=== PATIENT | female | born 1955 | race Caucasian/White ===

== ENCOUNTER → 2017-05-12 | Outpatient (CLI) | payer BC ==
--- NOTE | 2017-05-15 13:17 | MM ---
Reason for exam: screening (asymptomatic). Last mammogram was performed 2 years and 2 months ago. History: Patient is postmenopausal. Family history of breast cancer in mother. Physical Findings: A clinical breast exam by your physician is recommended on an annual basis and results should be correlated with mammographic findings. MG 3D Screening Mammo W/Cad Bilateral CC and MLO view(s) were taken. XCCL view(s) were taken of the right breast. Prior study comparison: March 25, 2015, bilateral MG screening mammo w CAD. August 12, 2010, bilateral digital screening mammo w/CAD. The breast tissue is extremely dense which could obscure a lesion on mammography. Finding: There are stable typically benign dystrophic calcifications in the right breast. No suspicious abnormality. ASSESSMENT: Benign, BI-RAD 2 RECOMMENDATION: Routine screening mammogram of both breasts in 1 year.
== END | disposition home or self-care (01) ==
LOC: RADMAMWWP 09:04
PROVIDERS: ATTEND Family Medicine
DX: Z12.31 Encounter for screening mammogram for malignant neoplasm of breast (principal)
CPT/HCPCS: 77063; 77067

== ENCOUNTER → 2020-07-29 | Outpatient (CLI) | payer OTHER ==
--- NOTE | 2020-08-03 07:57 | MM ---
Reason for exam: screening (asymptomatic). Last mammogram was performed 3 years and 3 months ago. History: Patient is postmenopausal. Family history of breast cancer in mother. Physical Findings: A clinical breast exam by your physician is recommended on an annual basis and results should be correlated with mammographic findings. MG Screening Mammo w CAD Bilateral CC and MLO view(s) were taken. Prior study comparison: May 12, 2017, bilateral MG 3d screening mammo w/cad. March 25, 2015, bilateral MG screening mammo w CAD. The breast tissue is heterogeneously dense. This may lower the sensitivity of mammography. ASSESSMENT: Benign, BI-RAD 2 RECOMMENDATION: Routine screening mammogram of both breasts in 1 year.
== END | disposition home or self-care (01) ==
LOC: RADMAMWWP 16:15
PROVIDERS: ATTEND Family Medicine
DX: Z12.31 Encounter for screening mammogram for malignant neoplasm of breast (principal); Z78.0 Asymptomatic menopausal state; Z80.3 Family history of malignant neoplasm of breast
CPT/HCPCS: 77067

== ENCOUNTER → 2020-11-25 | Outpatient (CLI) | payer OTHER ==
--- NOTE | 2020-11-26 08:00 | ECHOF ---
Referral Reason:R94.331 abnormal EKG MEASUREMENTS -------- HEIGHT: 172.7 cm WEIGHT: 65.8 kg BP: RVIDd: 3.6 cm (< 3.3) IVSd: 1.2 cm (0.6 - 1.1) LVIDd: 4.6 cm (3.9 - 5.3) LVPWd: 1.1 cm (0.6 - 1.1) IVSs: 2.0 cm LVIDs: 3.0 cm LVPWs: 1.7 cm LAESV Index (A-L): 20.64 ml/m Ao Diam: 3.0 cm (2.0 - 3.7) AV Cusp: 2.0 cm (1.5 - 2.6) LA Diam: 2.2 cm (2.7 - 3.8) MV EXCURSION: 16.432 mm (> 18.000) MV EF SLOPE: 100 mm/s (70 - 150) EPSS: 0.6 cm MV E Rodolfo: 0.57 m/s MV DecT: 204 ms MV A Rodolfo: 0.79 m/s MV E/A Ratio: 0.72 RAP: 5.00 mmHg RVSP: 22.34 mmHg FINDINGS -------- Sinus rhythm. This was a technically adequate study. The left ventricular size is normal. There is mild concentric left ventricular hypertrophy. Overa ll left ventricular systolic function is normal with, an EF between 55 - 60 %. The diastolic fillin g pattern is normal for the age of the patient 8.82. The right ventricle is mildly enlarged. Normal LA size by volume 22+/-6 ml/m2. The right atrium is mildly enlarged. Interatrial and interventricular septum intact. There is no evidence of aortic regurgitation. There is no evidence of aortic stenosis. No mitral regurgitation. Mild tricuspid regurgitation present. There is no evidence of pulmonary hypertension. The right v entricular systolic pressure, as measured by Doppler, is 22.34mmHg. There is no pulmonic regurgitation present. The aortic root size is normal. Normal inferior vena cava with normal inspiratory collapse consistent with estimated right atrial pre ssure of 5 mmHg. There is no pericardial effusion. CONCLUSIONS -------- 1. The left ventricular size is normal. 2. There is mild concentric left ventricular hypertrophy. 3. Overall left ventricular systolic function is normal with, an EF between 55 - 60 %. 4. The diastolic filling pattern is normal for the age of the patient 8.82 5. The right ventricle is mildly enlarged. 6. The right atrium is mildly enlarged. 7. Mild tricuspid regurgitation present. [employer] AGENT TEAM MEMBER: Jelly Garcia RDCS
== END | disposition home or self-care (01) ==
LOC: RADECHMAIN 14:34
PROVIDERS: ATTEND Family Medicine
DX: I51.7 Cardiomegaly (principal); I36.1 Nonrheumatic tricuspid (valve) insufficiency
CPT/HCPCS: 93306

== ENCOUNTER 2021-02-14 10:50 | Inpatient (IN) | payer OTHER ==
[2021-02-14] MEDS ORDERED: DEXAMETHASONE SOD PHOSPHATE 10 MG/ML 1 ML VIAL IV STA (11:46)
[2021-02-14] MEDS ORDERED: IPRATROPIUM-ALBUTEROL 3 ML NEB INHALATION STA (11:46)
--- NOTE | 2021-02-14 11:49 | ED ---
General Adult HPI - General Chief complaint: Shortness of Breath Stated complaint: ALFREDO Time Seen by Provider: 02/14/21 10:52 Source: EMS Mode of arrival: EMS Limitations: no limitations - History of Present Illness Initial comments: Dictation was produced using [employer] dictation software. please excuse any grammatical, word or spelling errors. Chief Complaint: 64-year-old female presents with several days of shortness of breath History of Present Illness: She 64-year-old female she smokes one pack of cigarettes a day. Patient states she has not had a cigarette in 2-3 days. Patient referable last 2-3 days. Denies any fevers. No cough. No sore throat or runny nose. Denies any lower extremity swelling. No history of blood clots. No nasal congestion. Nontoxic splint and agree with covered her COVID-19 symptoms. He muscles call patient given breathing treatment with improvement of her symptoms. The ROS documented in this emergency department record has been reviewed and confirmed by me. Those systems with pertinent positive or negative responses have been documented in the HPI. All other systems are other negative and/or noncontributory. PHYSICAL EXAM: General Impression: Alert and oriented x3, not in acute distress HEENT: Normocephalic atraumatic, extra-ocular movements intact, pupils equal and reactive to light bilaterally, mucous membranes moist. Cardiovascular: Heart regular rate and rhythm Chest: Able to complete full sentences, no retractions, no tachypnea, mild end expiratory wheezing diffusely Abdomen: abdomen soft, non-tender, non-distended, no organomegaly Musculoskeletal: Pulses present and equal in all extremities, no peripheral edema Motor: no focal deficits noted Neurological: CN II-XII grossly intact, no focal motor or sensory deficits noted Skin: Intact with no visualized rashes Psych: Normal affect and mood ED course: 65-year-old male presents emergency department for suture complaint of shortness of breath. Vital signs upon arrival are within acceptable limits. Do not suspect pulmonary embolism. EKG shows diffuse T-wave inversions in lead 23 inferior and lateral precordial leads. Laboratory evaluation obtained. CBC unremarkable. Coag panel is negative. D-dimer 0.85. Metabolic panel is unremarkable. Patient's troponin 0.760. Brain natruretic peptide of 6680. Coronavirus test is negative. This is discussed with cardiology was aware patient. She does have some symptoms concerning for acute coronary syndrome given onset heart failure, e levated troponin and EKG changes. Patient started on heparin given aspirin. Patient reevaluated at 1521 at the bedside not having any active symptoms currently. She'll be admitted to [facility] hospitalist group. EKG interpretation: Ventricular rate 89, normal sinus rhythm,. Interval 150, QRS 74, QTC 501. No KS prolongation, no QTC prolongation. There are T-wave inversions in inferior leads and septal lateral precordial leads. EKG concerning for ischemic changes. - Related Data Home Medications Medication Instructions Recorded Confirmed Cholecalciferol [Vitamin D3 (25 50 mcg PO Q48H 02/14/21 02/14/21 Mcg = 1000 Iu)] Levothyroxine Sodium [Synthroid] 62.5 mcg PO CAPUTO 02/14/21 02/14/21 Levothyroxine Sodium [Synthroid] 125 mcg PO [id number] 02/14/21 02/14/21 Allergies Allergy/AdvReac Type Severity Reaction Status Date / Time No Known Allergies Allergy Verified 02/14/21 11:37 Review of Systems ROS Statement: Those systems with pertinent positive or pertinent negative responses have been documented in the HPI. ROS Other: All systems not noted in ROS Statement are negative. Past Medical History Additional Past Medical History / Comment(s): hypothyroid History of Any Multi-Drug Resistant Organisms: None Reported Past Surgical History: Hysterectomy Additional Past Surgical History / Comment(s): partial thyroidectomy Past Psychological History: No Psychological Hx Reported Smoking Status: Current every day smoker Past Alcohol Use History: None Reported Past Drug Use History: None Reported General Exam Limitations: no limitations Course Vital Signs 02/14/21 02/14/21 02/14/21 10:50 11:20 13:03 Temperature 98.5 F Pulse Rate 99 93 Respiratory 24 22 18 Rate Blood Pressure 118/90 109/74 O2 Sat by Pulse 99 97 Oximetry 02/14/21 02/14/21 02/14/21 13:15 13:22 14:02 Temperature Pulse Rate 88 88 92 Respiratory 18 18 20 Rate Blood Pressure 90/57 O2 Sat by Pulse 97 Oximetry Medical Decision Making - Lab Data Result diagrams: 02/14/21 11:50 02/14/21 11:50 Lab Results 02/14/21 02/14/21 02/14/21 Range/Units 11:50 11:50 11:50 WBC 8.4 (3.8-10.6) k/uL RBC 4.93 (3.80-5.40) m/uL Hgb 15.2 (11.4-16.0) gm/dL Hct 43.5 (34.0-46.0) % MCV 88.3 (80.0-100.0) fL MCH 30.8 (25.0-35.0) pg MCHC 34.9 (31.0-37.0) g/dL RDW 12.3 (11.5-15.5) % Plt Count 174 (150-450) k/uL MPV 10.5 Neutrophils % 68 % Lymphocytes % 22 % Monocytes % 7 % Eosinophils % 0 % Basophils % 0 % Neutrophils # 5.7 (1.3-7.7) k/uL Lymphocytes # 1.9 (1.0-4.8) k/uL Monocytes # 0.6 (0-1.0) k/uL Eosinophils # 0.0 (0-0.7) k/uL Basophils # 0.0 (0-0.2) k/uL PT 10.1 (9.0-12.0) sec INR 0.9 (<1.2) APTT 22.4 (22.0-30.0) sec D-Dimer (<0.60) mg/L FEU Sodium 136 L (137-145) mmol/L Potassium 4.1 (3.5-5.1) mmol/L Chloride 103 (98-107) mmol/L Carbon Dioxide 24 (22-30) mmol/L Anion Gap 9 mmol/L BUN 11 (7-17) mg/dL Creatinine 0.49 L (0.52-1.04) mg/dL Est GFR (CKD-EPI)AfAm >90 (>60 ml/min/1.73 sqM) Est GFR (CKD-EPI)NonAf >90 (>60 ml/min/1.73 sqM) Glucose 134 H (74-99) mg/dL Calcium 9.4 (8.4-10.2) mg/dL Troponin I (0.000-0.034) ng/mL NT-Pro-B Natriuret Pep pg/mL Coronavirus (PCR) (Not Detectd) 02/14/21 02/14/21 02/14/21 Range/Units 11:50 11:50 11:50 WBC (3.8-10.6) k/uL RBC (3.80-5.40) m/uL Hgb (11.4-16.0) gm/dL Hct (34.0-46.0) % MCV (80.0-100.0) fL MCH (25.0-35.0) pg MCHC (31.0-37.0) g/dL RDW (11.5-15.5) % Plt Count (150-450) k/uL MPV Neutrophils % % Lymphocytes % % Monocytes % % Eosinophils % % Basophils % % Neutrophils # (1.3-7.7) k/uL Lymphocytes # (1.0-4.8) k/uL Monocytes # (0-1.0) k/uL Eosinophils # (0-0.7) k/uL Basophils # (0-0.2) k/uL PT (9.0-12.0) sec INR (<1.2) APTT (22.0-30.0) sec D-Dimer (<0.60) mg/L FEU Sodium (137-145) mmol/L Potassium (3.5-5.1) mmol/L Chloride (98-107) mmol/L Carbon Dioxide (22-30) mmol/L Anion Gap mmol/L BUN (7-17) mg/dL Creatinine (0.52-1.04) mg/dL Est GFR (CKD-EPI)AfAm (>60 ml/min/1.73 sqM) Est GFR (CKD-EPI)NonAf (>60 ml/min/1.73 sqM) Glucose (74-99) mg/dL Calcium (8.4-10.2) mg/dL Troponin I 0.760 H* (0.000-0.034) ng/mL NT-Pro-B Natriuret Pep 6680 pg/mL Coronavirus (PCR) Not Detected (Not Detectd) 02/14/21 Range/Units 11:50 WBC (3.8-10.6) k/uL RBC (3.80-5.40) m/uL Hgb (11.4-16.0) gm/dL Hct (34.0-46.0) % MCV (80.0-100.0) fL MCH (25.0-35.0) pg MCHC (31.0-37.0) g/dL RDW (11.5-15.5) % Plt Count (150-450) k/uL MPV Neutrophils % % Lymphocytes % % Monocytes % % Eosinophils % % Basophils % % Neutrophils # (1.3-7.7) k/uL Lymphocytes # (1.0-4.8) k/uL Monocytes # (0-1.0) k/uL Eosinophils # (0-0.7) k/uL Basophils # (0-0.2) k/uL PT (9.0-12.0) sec INR (<1.2) APTT (22.0-30.0) sec D-Dimer 0.85 H (<0.60) mg/L FEU Sodium (137-145) mmol/L Potassium (3.5-5.1) mmol/L Chloride (98-107) mmol/L Carbon Dioxide (22-30) mmol/L Anion Gap mmol/L BUN (7-17) mg/dL Creatinine (0.52-1.04) mg/dL Est GFR (CKD-EPI)AfAm (>60 ml/min/1.73 sqM) Est GFR (CKD-EPI)NonAf (>60 ml/min/1.73 sqM) Glucose (74-99) mg/dL Calcium (8.4-10.2) mg/dL Troponin I (0.000-0.034) ng/mL NT-Pro-B Natriuret Pep pg/mL Coronavirus (PCR) (Not Detectd) Critical Care Time Critical Care Time: Yes Total Critical Care Time: 33 Disposition Clinical Impression: New onset of congestive heart failure, Elevated troponin Disposition: ADMITTED IP TO THIS [facility] Condition: Critical Referrals: Ric Vears DO [Primary Care Provider] - 1-2 days
[2021-02-14 12:12] LABS: Basophils % (A) 0 %; Eosinophils % (A) 0 %; HCT 43.5 % (34.0-46.0); HGB 15.2 gm/dL (11.4-16.0); Lymphocytes # (A) 1.9 k/uL (1.0-4.8); Lymphocytes % (A) 22 %; MCH 30.8 pg (25.0-35.0); MCHC 34.9 g/dL (31.0-37.0); MCV 88.3 fL (80.0-100.0); Mean Platelet Volume 10.5; Monocytes # (A) 0.6 k/uL (0-1.0); Monocytes % (A) 7 %; Neutrophils # (A) 5.7 k/uL (1.3-7.7); Neutrophils % (A) 68 %; Platelet Count 174 k/uL (150-450); RBC 4.93 m/uL (3.80-5.40); RDW 12.3 % (11.5-15.5); WBC 8.4 k/uL (3.8-10.6)
[2021-02-14 12:20] LABS: INR 0.9 (<1.2); Partial Thromboplastin Time 22.4 sec (22.0-30.0); Prothrombin Time 10.1 sec (9.0-12.0)
[2021-02-14 12:22] LABS: African American GFR (CKD) >90 (>60 ml/min/1.73 sqM); Anion Gap 9 mmol/L; Blood Urea Nitrogen 11 mg/dL (7-17); Calcium 9.4 mg/dL (8.4-10.2); Carbon Dioxide 24 mmol/L (22-30); Chloride 103 mmol/L (98-107); Glucose 134 mg/dL (74-99); Non-African American GFR(CKD) >90 (>60 ml/min/1.73 sqM); Potassium 4.1 mmol/L (3.5-5.1); Sodium 136 mmol/L (137-145)
--- NOTE | 2021-02-14 13:03 | XR ---
EXAMINATION TYPE: XR chest 1V portable DATE OF EXAM: 02/14/2021 12:36 PM COMPARISON:Chest radiographs from 09/16/2012 CLINICAL INDICATION:Female, 65 years old with history of dyspnea; TECHNIQUE: Frontal view of the chest. FINDINGS: Lungs/Pleura: There is no evidence of pleural effusion, focal consolidation, or pneumothorax. Pulmonary vascularity: Unremarkable. Heart/mediastinum: Cardiomediastinal silhouette is unremarkable. Musculoskeletal: No acute osseous pathology. IMPRESSION: No acute cardiopulmonary disease/process.
[2021-02-14] MEDS ORDERED: HEPARIN SODIUM 1,000 UN/ML (10ML VL) IV ONE (14:08)
[2021-02-14] MEDS ORDERED: HEPARIN SODIUM 1,000 UN/ML (10ML VL) IV PRN (14:08)
[2021-02-14] MEDS ORDERED: ASPIRIN 81 MG PO STA (14:09)
[2021-02-14] MEDS ORDERED: HEPARIN SOD,PORK IN 0.45% NACL 25,000 UNIT in 0.45% NACL 1 250ML.BAG IV SCH (14:15)
--- NOTE | 2021-02-14 14:43 | CT ---
EXAMINATION TYPE: CT angio chest DATE OF EXAM: 02/14/2021 COMPARISON: None HISTORY: shortness of breath CT DLP: 213.5 mGycm Automated exposure control for dose reduction was used. CONTRAST: Performed with IV Contrast, patient injected with 100 mL of Isovue 370. The lungs are clear of consolidation. There is mild subsegmental atelectasis at the lung bases. There is no pleural effusion. Heart size is normal. There is no pericardial effusion. There is normal contrast opacification of the pulmonary arteries. There are no filling defects. There is no mediastinal adenopathy. There are no hilar masses. There is minimal atheromatous change i n the thoracic aorta. Ascending aorta measures 3.7 cm. There is no sign of dissection. The thoracic spine is intact. There is no compression fracture. Sternum is intact. IMPRESSION: Negative exam. No evidence of pulmonary embolism. Mild subsegmental atelectasis at the lung bases. Multiple Small hepatic cysts are noted.
[2021-02-14] MEDS: FUROSEMIDE 10 MG/ML 4 ML VIAL IV SCH (15:30)
[2021-02-14] MEDS ORDERED: ACETAMINOPHEN TAB 500 MG TAB PO PRN (19:07)
[2021-02-14] MEDS ORDERED: IPRATROPIUM-ALBUTEROL 3 ML NEB INHALATION PRN (19:07)
[2021-02-14] MEDS ORDERED: ALPRAZolam 0.25 MG TAB PO PRN (19:07)
--- NOTE | 2021-02-14 20:00 | HP ---
HISTORY AND PHYSICAL DATE OF SERVICE: 02/14/2021. CHIEF COMPLAINT: Shortness of breath. HISTORY OF PRESENT ILLNESS: This 65-year-old woman with a past medical history of multiple medical problems, including hypothyroidism, hysterectomy, partial thyroidectomy, history of nicotine dependence, being followed by Dr. Ric Veras in the outpatient setting, was not feeling well over the past several days. Patient had increased shortness of breath, cough and congestion. Patient [facility] and was admitted to the hospital for further evaluation and treatment. Evaluation showed combination of possible COPD acute exacerbation of congestive heart failure acute exacerbation. D- dimer was elevated. Covid [address] angio chest did not show any acute abnormality. CT angio chest did not show any typical infiltrates suggestive of Covid 19 pneumonia. Fluid overload was suggested and possible bronchiectasis also suspected from the CT angio. The patient being closely monitored at this time. There is no history of fever, rigors, chills at this time. The patient is extremely short of breath. The patient also had elevated D-dimer and as well as diffuse ST-T changes in the EKG. PAST MEDICAL HISTORY: History of hypothyroidism, history of hysterectomy. MEDICATIONS: The medications are: Synthroid and vitamin D3. Dose reviewed. ALLERGIES: None. FAMILY HISTORY: No history of heart disease or strokes in the family. SOCIAL HISTORY: Previous history of smoking. No history of alcohol. REVIEW OF SYSTEMS: ENT: No diminished vision. No diminished hearing. CARDIOVASCULAR as mentioned. RESPIRATORY. As mentioned earlier. GI: No nausea or vomiting. : No dysuria. NERVOUS SYSTEM: No numbness or weakness. ALLERGY/IMMUNOLOGY: No asthma or hayfever. MUSCULOSKELETAL as mentioned earlier. HEMATOLOGY/ONCOLOGY: No history of anemia. ENDOCRINE: No history of diabetes or hypothyroidism. CONSTITUTIONAL: As mentioned earlier. DERMATOLOGY: Negative. RHEUMATOLOGY: Negative. PSYCHIATRIC: As mentioned earlier. PHYSICAL EXAMINATION: Alert and oriented x3. Pulse is 86, blood pressure 90/67, respiration 18, temperature 97.8, pulse ox 97% on 2 L. HEENT: Conjunctivae normal. NECK: No JVD. CARDIOVASCULAR: S1, S2 muffled. RESPIRATORY: Breath sounds diminished in the bases. Breathing efforts are markedly increased. Accessory muscles respiration acting. Bilateral scattered expiratory rhonchi and crackles also present. ABDOMEN: Soft, nontender. No mass palpable. LEGS: No edema. No swelling. NERVOUS SYSTEM: Higher functions as mentioned earlier. Moves all 4 limbs. No focal motor or sensory deficits. LYMPHATICS: No lymph nodes palpable in the neck, axillae or groin. SKIN: No ulcer, no rash and no bleeding. JOINTS: No active deforming arthropathy. LABS: CBC within normal limits. D-dimer is 0.85. Sodium 130. Other labs noted. ASSESSMENT: 1. Shortness of breath for evaluation possible chronic obstructive pulmonary disease acute exacerbation with acute purulent tracheobronchitis or with a combination of congestive heart failure acute exacerbation with acute on chronic diastolic dysfunction. 2. Troponin elevated up to 0.0760. Rule out possible acute ibt-VE-itsumrg myocardial infarction. 3. Diffuse ST-T changes in the EKG. 4. Elevated D-dimer without any evidence of pulmonary embolism. 5. Hyponatremia. 6. Elevated random glucose. 7. Elevated D-dimer. RECOMMENDATION: This 65-year-old woman presented with shortness of breath. We will continue to monitor. I would recommend intravenous Lasix and bronchodilators empirically and I would also recommend cardiology consultation. Two-D echo may be repeated. The patient might require further evaluation including cardiac catheterization and 2D echo with Doppler. Otherwise, we will closely follow with Pulmonary and as well as Cardiology. Overall prognosis guarded because of multiple complex medical issues. Further recommendations to follow. I would repeat Covid test also may be worthwhile by employing PCR. Otherwise, prognosis guarded because of multiple complex medical issues and further recommendations to follow. A copy of dictation forwarded to Dr. Veras who is the primary physician. MMODL / IJN: [id number] /
[2021-02-14 20:42] LABS: Glucose,Whole Blood 175 mg/dL (75-99)
[2021-02-14] MEDS: PANTOPRAZOLE 40 MG/10 ML VIAL IVP SCH (20:46)
[2021-02-14] MEDS: INSULIN ASPART (NovoLOG) 100 UNIT/ML VIAL SQ SCH (20:46)
[2021-02-14] MEDS: methylPREDNISolone SOD SUCCI 125 MG/2 ML VIAL IV SCH (20:46)
[2021-02-14] MEDS: IPRATROPIUM-ALBUTEROL 3 ML NEB INHALATION SCH (22:17)
[2021-02-14] MEDS: SYMBICORT 160-4.5 MCG INHALER INHALATION SCH (22:17)
[2021-02-14 22:50] LABS: Appearance,Urine Clear (Clear); Bilirubin,Urine Negative (Negative); Blood,Urine Trace (Negative); Color,Urine Yellow; Glucose,Urine (UA) Negative (Negative); Ketones,Urine Negative (Negative); Leukocyte Esterase,Urine Moderate (Negative); Mucus,Urine Rare /hpf; Nitrite,Urine Negative (Negative); Protein,Urine Negative (Negative); RBC,Urine 2 /hpf (0-5); Specific Gravity,Urine 1.036 (1.001-1.035); Squamous Epithelial Cell,Urine 1 /hpf (0-4); Urobilinogen,Urine <2.0 mg/dL (<2.0); WBC,Urine 3 /hpf (0-5)
[2021-02-15] MEDS: methylPREDNISolone SOD SUCCI 125 MG/2 ML VIAL IV SCH ×3 (00:26→12:32)
[2021-02-15 04:01] LABS: Basophils % (A) 0 %; Eosinophils % (A) 0 %; HCT 44.7 % (34.0-46.0); HGB 15.3 gm/dL (11.4-16.0); Lymphocytes # (A) 1.6 k/uL (1.0-4.8); Lymphocytes % (A) 19 %; MCH 30.7 pg (25.0-35.0); MCHC 34.2 g/dL (31.0-37.0); MCV 89.8 fL (80.0-100.0); Mean Platelet Volume 10.4; Monocytes # (A) 0.1 k/uL (0-1.0); Monocytes % (A) 2 %; Neutrophils # (A) 6.4 k/uL (1.3-7.7); Neutrophils % (A) 78 %; Platelet Count 191 k/uL (150-450); RBC 4.98 m/uL (3.80-5.40); RDW 12.2 % (11.5-15.5); WBC 8.3 k/uL (3.8-10.6)
[2021-02-15] MEDS: FUROSEMIDE 10 MG/ML 4 ML VIAL IV SCH ×2 (04:24→17:38)
[2021-02-15 04:36] LABS: African American GFR (CKD) >90 (>60 ml/min/1.73 sqM); Anion Gap 8 mmol/L; Blood Urea Nitrogen 17 mg/dL (7-17); Calcium 9.3 mg/dL (8.4-10.2); Carbon Dioxide 28 mmol/L (22-30); Chloride 100 mmol/L (98-107); Glucose 153 mg/dL (74-99); Non-African American GFR(CKD) >90 (>60 ml/min/1.73 sqM); Potassium 4.2 mmol/L (3.5-5.1); Sodium 136 mmol/L (137-145)
[2021-02-15 05:53] LABS: Glucose,Whole Blood 171 mg/dL (75-99)
[2021-02-15] MEDS: LEVOTHYROXINE 125 MCG TAB PO SCH (06:45)
[2021-02-15] MEDS: INSULIN ASPART (NovoLOG) 100 UNIT/ML VIAL SQ SCH ×4 (06:45→20:13)
[2021-02-15] MEDS: IPRATROPIUM-ALBUTEROL 3 ML NEB INHALATION SCH ×3 (07:20→19:56)
[2021-02-15] MEDS: SYMBICORT 160-4.5 MCG INHALER INHALATION SCH ×2 (07:30→19:56)
[2021-02-15] MEDS ORDERED: NITROGLYCERIN SL TABS 0.4 MG TAB SUBLINGUAL PRN (09:07)
[2021-02-15] MEDS ORDERED: ASPIRIN 325 MG TAB PO STA (09:07)
[2021-02-15] MEDS ORDERED: ATORVASTATIN 80 MG TAB PO STA (09:07)
[2021-02-15] MEDS: CHOLECALCIFEROL 25 MCG (1000 IU) TABLET PO SCH (09:28)
[2021-02-15] MEDS: PANTOPRAZOLE 40 MG/10 ML VIAL IVP SCH (09:30)
[2021-02-15] MEDS: SODIUM CHLORIDE 0.9% 1,000 ML in EMPTY BAG 1 BAG IV SCH (09:31)
--- NOTE | 2021-02-15 09:31 | CONS ---
CONSULTATION CHIEF COMPLAINT: Shortness of breath HISTORY OF PRESENT ILLNESS: Anastasia is a 65-year-old lady with no significant past medical history who presented to the hospital with shortness of breath. She states that initially her symptoms have started with cough, congestion. She did not receive any Covid vaccine but was Covid negative on this admission. Her EKG showed severe inferolateral T-wave inversions. One set of troponin was slightly elevated as was the BNP. She was treated with intravenous heparin and at the time of my evaluation, remains comfortable at rest, but she is short of breath with very minimal activity and she does not have any chest pain. She had a CT scan of the chest that was negative for pulmonary embolism and there was no evidence of Covid pneumonia. There was fluid overload. PAST MEDICAL HISTORY: Significant for hypothyroidism and history of hysterectomy. She is on Synthroid. ALLERGIES: No known drug allergies. FAMILY HISTORY: Negative for premature coronary artery disease. SOCIAL HISTORY: Negative for smoking, EtOH abuse or drug abuse. REVIEW OF SYSTEMS: HEENT is unremarkable. CARDIAC as described above. RESPIRATORY as described above. GI negative. GENITOURINARY negative. ALLERGY/IMMUNOLOGY negative. SKIN negative. MUSCULOSKELETAL significant for arthritis. PSYCHOSOCIAL negative. DERM negative. CONSTITUTIONAL negative. ONCOLOGICAL negative. ORDER PROCESSOR significant for feeling a little tremulous. EXAM: Comfortable at rest. Afebrile. Heart rate is 80 beats per minute. Blood pressure is 109/69, respiratory rate 18, O2 saturation is 95% on 2 L. NECK: There is no jugular venous distention. Carotid upstroke is diminished. There is no bruit. CHEST exam reveals good air entry bilaterally. HEART exam reveals first and second heart sounds. No gallop. No murmur. No rub. ABDOMEN is soft, nontender. Examination of EXTREMITIES did not reveal any edema. Peripheral pulses are felt. LABS: Labs show that the troponin is elevated. BNP is elevated. Potassium is 4.2 creatinine is 0.6. CBC shows a hemoglobin of 15.3 and platelet count is 191. ASSESSMENT: Shortness of breath with EKG changes suggestive of myocardial ischemia and elevated troponin. PLAN: I will obtain an echocardiogram on her. Repeat her troponin and I advised her to undergo cardiac catheterization to rule out coronary artery disease. MMODL / IJN: [id number] /
[2021-02-15] MEDS ORDERED: IV FLUID CONTINUATION 950 ML IV ONE (10:05)
[2021-02-15] MEDS ORDERED: MIDAZOLAM 2 MG/2 ML VIAL IVP ONE (10:15)
[2021-02-15] MEDS ORDERED: fentaNYL (PF) 50 MCG/ML 5 ML AMP IVP ONE (10:15)
[2021-02-15] MEDS ORDERED: LIDOCAINE 1% INJ 10MG/ML (20 ML MDV) SQ ONE (10:18)
[2021-02-15] MEDS ORDERED: VERAPAMIL SYRINGE (5 MG/10 ML) INTRAARTER ONE (10:20)
[2021-02-15] MEDS ORDERED: HEPARIN SODIUM 1,000 UN/ML (10ML VL) IVP ONE (10:22)
[2021-02-15] MEDS ORDERED: HEPARIN SODIUM 1,000 UN/ML (10ML VL) ONE (10:23)
[2021-02-15] MEDS ORDERED: IOPAMIDOL-370 125ML BTL INJ ONE (10:30)
--- NOTE | 2021-02-15 11:00 | ECHOF ---
Referral Reason:new chf- please repeat MEASUREMENTS -------- HEIGHT: 170.2 cm WEIGHT: 65.3 kg BP: 109/69 IVSd: 1.3 cm (0.6 - 1.1) LVIDd: 4.4 cm (3.9 - 5.3) LVPWd: 1.3 cm (0.6 - 1.1) IVSs: 1.6 cm LVIDs: 2.7 cm LVPWs: 2.2 cm FINDINGS -------- Sinus rhythm. This was a technically adequate study. Limited Study The left ventricular size is normal. There is mild concentric left ventricular hypertrophy. Overa ll left ventricular systolic function is moderately impaired with, an EF between 35 - 40 %. Mid ant erior LV wall motion is hypokinetic. Mid inferior LV wall motion is hypokinetic. Apical anterio r LV wall motion is hypokinetic. Apical lateral LV wall motion is hypokinetic. Apical inferior LV wall motion is hypokinetic. Apical septum LV wall motion is hypokinetic. There is no evidence of aortic regurgitation. Mild mitral regurgitation is present. There is no pericardial effusion. CONCLUSIONS -------- 1. The left ventricular size is normal. 2. There is mild concentric left ventricular hypertrophy. 3. Overall left ventricular systolic function is moderately impaired with, an EF between 35 - 40 %. 4. Mid anterior LV wall motion is hypokinetic. 5. Mid inferior LV wall motion is hypokinetic. 6. Apical anterior LV wall motion is hypokinetic. 7. Apical lateral LV wall motion is hypokinetic. 8. Apical inferior LV wall motion is hypokinetic. 9. Apical septum LV wall motion is hypokinetic. 10. Mild mitral regurgitation is present. TERRITORY ACCOUNT EXECUTIVE: Cammie Melendez [facility]
[2021-02-15 11:41] VITALS: BMI 22.6
--- NOTE | 2021-02-15 12:04 | CC ---
CARDIAC CATHETERIZATION REPORT INDICATION: Acute jaf-CP-cxuhwho-elevation [place] and ischemic cardiomyopathy. PROCEDURE NOTE: After obtaining informed consent, left heart catheterization and coronary angiogram were performed using standard Annie catheters via the right radial artery. Patient tolerated the procedure well without any obvious immediate complications. Total sedation time was 12 minutes. The right radial artery access was obtained using modified Seldinger technique and under fluoroscopic guidance wires and catheters were manipulated into the ascending aorta and catheters were exchanged there. A right Annie catheter was used to obtain left ventricular pressures. Patient received 5 mg of verapamil to prevent vasospasm and 1500 units of IV heparin. Patient was on heparin prior to the procedures. FINDINGS: HEMODYNAMICS: Left ventricular end-diastolic pressure is 15 mm. There is no significant gradient across the aortic valve. LEFT VENTRICULOGRAM: Left ventriculogram was not performed. ANGIOGRAPHIC DATA: Left main coronary artery. Left main coronary artery is a normal-sized vessel and is free of stenosis. It divides into left anterior descending coronary artery and circumflex coronary artery. LAD and its branches, circumflex coronary artery and its branches are free of significant stenosis. Right coronary artery is a large dominant vessel and is free of significant disease. CONCLUSIONS: 1. Mildly elevated left ventricular end-diastolic pressure. 2. Normal coronary arteries. PLAN: I reviewed angiographic data with the patient and told her that her LV systolic dysfunction and EKG changes and elevated troponin are probably related to takotsubo syndrome, and her management is going to be with aspirin, beta blockers, statins and KRISSY inhibitors, and we will repeat an echo on her down the road. MMODL / IJN: [id number] /
[2021-02-15 12:08] LABS: Glucose,Whole Blood 185 mg/dL (75-99)
[2021-02-15] MEDS ORDERED: RX INFO: IV CONTRAST WAS GIVEN 1 EACH MISC MISCELLANE PRN (12:42)
--- NOTE | 2021-02-15 12:52 | PCN ---
PROCEDURE NOTE CARDIOVERSION PROCEDURE NOTE: INDICATION: Atrial fibrillation. PROCEDURE DESCRIPTION: After explaining the procedure to the patient, its risks and complications, blood pressure, heart rate and O2 saturation were monitored. After performing transesophageal echocardiogram and obtaining sedated state per Anesthesia Department, a synchronized biphasic cardioversion using 200 joules was performed with jew of normal sinus rhythm. There was no immediate complication. TERE / CARYN: [id number] /
--- NOTE | 2021-02-15 13:35 | P.CNPUL ---
History of Present Illness Consult date: 02/15/21 Reason for consult: dyspnea History of present illness: This is a 65-year-old female patient was hospitalized because of increased shortness of breath, cough, chest congestion, wheezing and some chest pain. Note that her symptoms are more so related to respiratory. Note that the patient has not taken her COVID 19 vaccination. Her COVID 19 testing by PCR came back negative. EKG showed anterolateral T-wave inversions. Troponins were mildly elevated and the patient also had a elevated pro-BNP level. CT angiogram showed underlying COPD P no evidence of any pulmonary embolism. No evidence of any COVID 19 related pneumonia. No signs of any fluid overload. Based on all this, the patient was initially seen by cardiology. The cardiac catheterization was done and the patient was found to have normal coronaries. There was some mild elevation of left ventricle end-diastolic pressure. Following the cardiac catheterization, the patient was brought back to her room. I had opportunity to evaluate this patient. The patient the patient was free of any chest pain. She had a limited echocardiogram on 02/15/2021 9 AM and the patient had a left ventricle ejection fraction of 35-40%. The patient also had some mild segmental wall motion abnormalities. Nevertheless, the cardiac catheterization showed normal findings. In any rate, the patient is a chronic smoker. The patient smokes one pack of cigarettes a day. Her presentation is more typical of an underlying COPD exacerbation along with a mild component of CHF. Accordingly, the patient was started on DuoNeb nebulized treatment [id number], she is on Symbicort and she is also on IV Solu Medrol 60 mg every 6 hours. She is on Lasix 40 mg IV push every 12 hours. IV fluids TO KVO. SHE WAS STARTED ON ASPIRIN AND BETA BLOCKERS FOR NONCARDIAC IS ON THE CASE. Review of Systems Constitutional: Denies chills, Denies fever Eyes: denies as per HPI, denies blurred vision, denies bulging eye, denies decr eased vision, denies diplopia, denies discharge, denies dry eye, denies irritation, denies itching, denies pain, denies photophobia, denies loss of peripheral vision, denies loss of vision, denies tunnel vision/blind spots Ears: deny: decreased hearing, ear discharge, earache, tinnitus Ears, nose, mouth and throat: Reports as per HPI Breasts: absent: as per HPI, change in shape, gynecomastia, masses, nipple discharge, pain, skin changes, swelling Cardiovascular: Reports as per HPI, Reports decreased exercise tolerance, Reports dyspnea on exertion Respiratory: Reports cough, Reports cough with sputum, Reports dyspnea Gastrointestinal: Reports as per HPI Genitourinary: Reports as per HPI Menstruation: Reports as per HPI Musculoskeletal: Reports as per HPI Musculoskeletal: absent: ankle pain, ankle stiffness, ankle swelling, as per HPI, elbow pain, elbow stiffness, elbow swelling, foot pain, foot stiffness, foot swelling, hand pain, hand stiffness, hand swelling, hip pain, hip stiffness, hip swelling, knee pain, knee stiffness, knee swelling, shoulder pain, shoulder stiffness, shoulder swelling, wrist pain, wrist stiffness, wrist swelling Integumentary: Reports as per HPI Neurological: Reports as per HPI Psychiatric: Reports as per HPI Endocrine: Reports as per HPI Hematologic/Lymphatic: Reports as per HPI Allergic/Immunologic: Reports as per HPI Past Medical History Past Medical History: Thyroid Disorder Additional Past Medical History / Comment(s): hypothyroid History of Any Multi-Drug Resistant Organisms: None Reported Past Surgical History: Hysterectomy Additional Past Surgical History / Comment(s): partial thyroidectomy Past Psychological History: No Psychological Hx Reported Smoking Status: Former smoker Past Alcohol Use History: None Reported Past Drug Use History: None Reported Medications and Allergies Home Medications Medication Instructions Recorded Confirmed Type Cholecalciferol [Vitamin D3 (25 50 mcg PO Q48H 02/14/21 02/14/21 History Mcg = 1000 Iu)] Levothyroxine Sodium [Synthroid] 62.5 mcg PO CAPUTO 02/14/21 02/14/21 History Levothyroxine Sodium [Synthroid] 125 mcg PO [id number] 02/14/21 02/14/21 History Allergies Allergy/AdvReac Type Severity Reaction Status Date / Time No Known Allergies Allergy Verified 02/14/21 11:37 Physical Exam Vitals: Vital Signs Temp Pulse Pulse Resp BP BP Pulse Ox 02/15/21 12:15 97 02/15/21 12:08 95 02/15/21 11:25 74 18 105/71 94 L 02/15/21 11:10 74 18 99/57 02/15/21 10:55 81 16 90/52 91 L 02/15/21 10:40 71 16 89/56 91 L 02/15/21 09:37 18 02/15/21 09:36 97.4 F L 72 18 99/61 91 L 02/15/21 07:30 85 02/15/21 07:24 83 02/15/21 04:17 97.3 F L 80 20 109/69 95 02/15/21 00:07 78 22 99/66 94 L 02/14/21 20:17 97.4 F L 89 20 102/69 95 02/14/21 17:53 97.8 F 86 18 99/67 97 02/14/21 15:40 97 20 103/72 97 02/14/21 14:02 92 20 90/57 97 Intake and Output 02/14/21 02/15/21 02/15/21 22:59 06:59 14:59 Intake Total 170.225 207.539 Output Total 800 Balance 170.225 -800 207.539 Intake: IV 100 Intake, IV Titration 52.225 107.539 Amount Heparin Sod,Pork in 0.45% 52.225 107.539 NaCl 25,000 unit In 0.45 % NaCl 1 250ml.bag @ 12 UNITS/KG/HR 7.893 mls/hr IV .Q24H [facility] Rx#: [id number] Oral 118 0 Output: Urine 800 Other: Voiding Method Toilet Toilet Toilet # Voids 1 2 Weight 65.771 kg 65.5 kg 65.5 kg General Impression: Alert and oriented x3, not in acute distress, currently on 2 L about 2 by nasal cannula HEENT: Normocephalic atraumatic, extra-ocular movements intact, pupils equal and reactive to light bilaterally, mucous membranes moist. Cardiovascular: Heart regular rate and rhythm Chest: Able to complete full sentences, no retractions, no tachypnea, mild end expiratory wheezing diffusely Abdomen: abdomen soft, non-tender, non-distended, no organomegaly Musculoskeletal: Pulses present and equal in all extremities, no peripheral edema, the catheterization site in the right radial area is dry clean and intact and there is no evidence of any hematoma. The patient has an arterial stop In that location. Motor: no focal deficits noted Neurological: CN II-XII grossly intact, no focal motor or sensory deficits noted Skin: Intact with no visualized rashes Psych: Normal affect and moo Results - Laboratory Findings CBC and BMP: 02/15/21 03:48 02/15/21 03:48 PT/INR, D-dimer PT 10.1 sec (9.0-12.0) 02/14/21 11:50 INR 0.9 (<1.2) 02/14/21 11:50 D-Dimer 0.85 mg/L FEU (<0.60) H 02/14/21 11:50 Abnormal lab findings: Abnormal Labs 02/14/21 02/14/21 02/14/21 11:50 11:50 11:50 APTT D-Dimer 0.85 H Sodium 136 L Creatinine 0.49 L Glucose 134 H POC Glucose (mg/dL) Troponin I 0.760 H* Procalcitonin Ur Specific [place] Urine Blood Ur Leukocyte Esterase Urine Mucus 02/14/21 02/14/21 02/14/21 11:50 20:40 22:19 APTT D-Dimer Sodium Creatinine Glucose POC Glucose (mg/dL) 175 H Troponin I Procalcitonin 0.12 H Ur Specific [place] 1.036 H Urine Blood Trace H Ur Leukocyte Esterase Moderate H Urine Mucus Rare H 02/15/21 02/15/21 02/15/21 03:48 03:48 05:51 APTT 45.0 H D-Dimer Sodium 136 L Creatinine Glucose 153 H POC Glucose (mg/dL) 171 H Troponin I Procalcitonin Ur Specific [place] Urine Blood Ur Leukocyte Esterase Urine Mucus 02/15/21 02/15/21 09:13 11:58 APTT D-Dimer Sodium Creatinine Glucose POC Glucose (mg/dL) 185 H Troponin I 0.293 H* Procalcitonin Ur Specific [place] Urine Blood Ur Leukocyte Esterase Urine Mucus - Diagnostic Findings Chest x-ray: image reviewed CT scan - chest: image reviewed Assessment and Plan Plan: 1 acute COPD exacerbation with secondary shortness of breath, computed tomography scan of the chest shows no evidence of any pulmonary embolism or pneumonia. Patient is negative for COVID 19 infection by PCR 2 acute non-STEMI, coronaries are normal, consider underlying takasubo syndrome 3 cardiomyopathy with ejection fraction of 35-40% along with segmental wall motion abnormalities 4 acute hypoxic respiratory failure currently on 2 L about 2 by nasal cannula 5 history of smoking 6 history of smoking Plan IV fluids to KVO Continue Lasix 40 mg every 12 hours over the next 24 hours Continue Symbicort Continue IV Solu-Medrol Continue aspirin and beta blockers in the form of metoprolol 25 mg daily Smoking cessation counseling was done Outpatient PFT Wean FiO2 as tolerated to maintain saturation above 90% We'll continue to follow.
--- NOTE | 2021-02-15 15:28 | P.PN ---
Subjective 65-year-old pleasant female came in with compensative shortness of breath cough and congestion is an admission. Patient the results of found to have negative troponins patient had a cardiac catheterization which did not show any significant close cortical occlusive disease, patient probably has a Takatsubo cardiomyopathy is stress in his cardio myopathy with decreased EF of around 30- 35% patient's end-diastolic pressures were elevated because of which patient is on IV Lasix at this time patient is an not in COPD exacerbation I'm discontinuing IV steroids. Constitutional: Denied any fatigue denied any fever. Cardio vascular: denied any chest pain, palpitations Gastrointestinal denied any nausea vomiting Pulmonary: Denied any shortness of breath cough Neurologic denied any new focal deficits All inpatient medications were reviewed and appropriate changes in these medications as dictated in the interval history and assessment and plan. PHYSICAL EXAMINATION: GENERAL: The patient is alert and oriented x3, not in any acute distress. Well developed, well nourished. HEENT: Pupils are round and equally reacting to light. EOMI. No scleral icterus. No conjunctival pallor. Normocephalic, atraumatic. No pharyngeal erythema. No thyromegaly. CARDIOVASCULAR: S1 and S2 present. No murmurs, rubs, or gallops. PULMONARY: Chest is clear to auscultation, no wheezing or crackles. ABDOMEN: Soft, nontender, nondistended, normoactive bowel sounds. No palpable organomegaly. MUSCULOSKELETAL: No joint swelling or deformity. EXTREMITIES: No cyanosis, clubbing, or pedal edema. NEUROLOGICAL: Gross neurological examination did not reveal any focal deficits. SKIN: No rashes. Assessment and plan -Shortness of breath: Secondary to acute systolic dysfunction from Takatsubo myopathy with decreased EF of around 30-35%. Patient has acute exacerbation. Continue with IV Lasix. --Elevated troponins: Secondary to stress-induced cardiomyopathy as mentioned above -COPD without any significant acute exacerbation systemic steroids will be di scontinued -Hyperthyroidism DVT prophylaxis: Lovenox Objective - Vital Signs Vital signs: Vital Signs Temp 97.4 F L 02/15/21 09:36 Pulse 76 02/15/21 14:27 Resp 18 02/15/21 15:02 BP 102/64 02/15/21 14:27 Pulse Ox 93 L 02/15/21 14:27 Intake & Output 02/14/21 02/15/21 02/15/21 18:59 06:59 18:59 Intake Total 118 52.225 421.539 Output Total 800 Balance 118 -747.775 421.539 Weight 65.771 kg 65.5 kg 65.5 kg Intake: IV 100 Intake, IV Titration 52.225 107.539 Amount Heparin Sod,Pork in 0.45% 52.225 107.539 NaCl 25,000 unit In 0.45 % NaCl 1 250ml.bag @ 12 UNITS/KG/HR 7.893 mls/hr IV .Q24H [facility] Rx#: [id number] Oral 118 214 Output: Urine 800 Other: Voiding Method Toilet Toilet # Voids 1 2 1 - Labs CBC & Chem 7: 02/15/21 03:48 02/15/21 03:48 Labs: Abnormal Lab Results - Last 24 Hours (Table) 02/14/21 02/14/21 02/14/21 Range/Units 11:50 20:40 22:19 APTT (22.0-30.0) sec Sodium (137-145) mmol/L Glucose (74-99) mg/dL POC Glucose (mg/dL) 175 H (75-99) mg/dL Troponin I (0.000-0.034) ng/mL Procalcitonin 0.12 H (0.02-0.09) ng/mL Ur Specific [place] 1.036 H (1.001-1.035) Urine Blood Trace H (Negative) Ur Leukocyte Esterase Moderate H (Negative) Urine Mucus Rare H (None) /hpf 02/15/21 02/15/21 02/15/21 Range/Units 03:48 03:48 05:51 APTT 45.0 H (22.0-30.0) sec Sodium 136 L (137-145) mmol/L Glucose 153 H (74-99) mg/dL POC Glucose (mg/dL) 171 H (75-99) mg/dL Troponin I (0.000-0.034) ng/mL Procalcitonin (0.02-0.09) ng/mL Ur Specific [place] (1.001-1.035) Urine Blood (Negative) Ur Leukocyte Esterase (Negative) Urine Mucus (None) /hpf 02/15/21 02/15/21 Range/Units 09:13 11:58 APTT (22.0-30.0) sec Sodium (137-145) mmol/L Glucose (74-99) mg/dL POC Glucose (mg/dL) 185 H (75-99) mg/dL Troponin I 0.293 H* (0.000-0.034) ng/mL Procalcitonin (0.02-0.09) ng/mL Ur Specific [place] (1.001-1.035) Urine Blood (Negative) Ur Leukocyte Esterase (Negative) Urine Mucus (None) /hpf
[2021-02-15 16:58] LABS: Glucose,Whole Blood 128 mg/dL (75-99)
[2021-02-15] MEDS: SODIUM CHLORIDE 0.9% 1,000 ML IV SCH (19:31)
[2021-02-15 20:12] LABS: Glucose,Whole Blood 143 mg/dL (75-99)
[2021-02-16] MEDS: SODIUM CHLORIDE 0.9% 1,000 ML IV SCH (02:04)
[2021-02-16] MEDS: SODIUM CHLORIDE 0.9% 1,000 ML in EMPTY BAG 1 BAG IV SCH ×2 (02:04→17:25)
[2021-02-16] MEDS: FUROSEMIDE 10 MG/ML 4 ML VIAL IV SCH (04:09)
[2021-02-16 05:56] LABS: Glucose,Whole Blood 107 mg/dL (75-99)
[2021-02-16] MEDS: INSULIN ASPART (NovoLOG) 100 UNIT/ML VIAL SQ SCH (06:05)
[2021-02-16] MEDS: LEVOTHYROXINE 125 MCG TAB PO SCH (06:06)
[2021-02-16] MEDS: PANTOPRAZOLE 40 MG TABLET PO SCH (06:06)
[2021-02-16] MEDS: METOPROLOL SUCCINATE (ER) 25 MG TAB.ER.24H PO SCH (08:01)
[2021-02-16] MEDS: ASPIRIN 81 MG PO SCH (08:02)
[2021-02-16] MEDS: IPRATROPIUM-ALBUTEROL 3 ML NEB INHALATION SCH ×3 (08:51→20:06)
[2021-02-16] MEDS: SYMBICORT 160-4.5 MCG INHALER INHALATION SCH ×2 (08:51→20:06)
--- NOTE | 2021-02-16 10:34 | P.PN ---
Subjective Progress Note Date: 02/16/21 This 65-year-old female with no significant past medical history admitted with new onset heart failure. Patient's EKG revealed severe inferior lateral T-wave inversions and positive troponins, underwent a left heart catheterization yesterday via right radial artery access to evaluate for myocardial ischemia. Patient was found to have mildly elevated left ventricular end diastolic pressure and normal coronary arteries negative for significant blockages. Patient will be medically managed. It is believed the patient's EKG changes and elevated troponins are probably related to Takotsubo syndrome. Patient's echocardiogram showed moderately impaired systolic function with an ejection fraction of 35-40% with wall motion abnormalities. Patient is assessed today sitting in bed wearing 2 L nasal cannula with no signs of acute distress. Right radial access site is soft, no hematoma drainage, or erythema. She denies chest pain, palpitations, dyspnea, dizziness, syncope, or edema. Blood pressure is 102/56, afebrile, heart rate 81, 91% on 2 L nasal cannula. Chest x-ray is negative for acute cardiopulmonary disease or process. Will discontinue IV Lasix and start patient on oral lasix. Will continue patient on aspirin, beta blockers, statin, KRISSY inhibitor. Decrease oxygen as tolerated. Objective - Vital Signs Vital signs: Vital Signs Temp 97.7 F 02/16/21 08:04 Pulse 90 02/16/21 09:01 Resp 18 02/16/21 08:04 BP 102/56 02/16/21 08:04 Pulse Ox 91 L 02/16/21 08:04 Intake & Output 02/15/21 02/16/21 02/16/21 18:59 06:59 18:59 Intake Total 971.539 240 Output Total 1025 1300 Balance -53.461 -1300 240 Weight 65.5 kg 65.7 kg Intake: IV 100 Intake, IV Titration 107.539 Amount Heparin Sod,Pork in 0.45% 107.539 NaCl 25,000 unit In 0.45 % NaCl 1 250ml.bag @ 12 UNITS/KG/HR 7.893 mls/hr IV .Q24H [facility] Rx#: [id number] Oral 214 240 Blood Product 550 Output: Urine 1025 1300 Other: Voiding Method Toilet Toilet # Voids 1 - Exam PHYSICAL EXAM: VITAL SIGNS: Reviewed. GENERAL: Well-developed in no acute distress. HEENT: Head is normocephalic. Pupils are equal, round. Sclerae anicteric. Mucous membranes of the mouth are moist. NECK: Supple. No JVD or thyromegaly RESPIRATORY: Respirations even and unlabored. Lungs diminished with faint expiratory wheezes to auscultation bilaterally. Patient on 2 L nasal cannula CARDIO: Regular rate and rhythm. S1 and S2 heard. No murmur or gallops. EXTREMITIES: Normal range of motion. No clubbing or cyanosis. Peripheral pulses intact. Negative for bilateral lower extremity edema NEURO: Orientated to person, time, mood is appropriate - Labs CBC & Chem 7: 02/15/21 03:48 02/15/21 03:48 Labs: Abnormal Lab Results - Last 24 Hours (Table) 02/14/21 02/15/21 02/15/21 Range/Units 11:50 11:58 16:55 APTT (22.0-30.0) sec POC Glucose (mg/dL) 185 H 128 H (75-99) mg/dL Procalcitonin 0.12 H (0.02-0.09) ng/mL 02/15/21 02/16/21 02/16/21 Range/Units 20:11 05:54 06:34 APTT 21.7 L (22.0-30.0) sec POC Glucose (mg/dL) 143 H 107 H (75-99) mg/dL Procalcitonin (0.02-0.09) ng/mL Assessment and Plan Assessment: New onset systolic congestive heart failure Takotsubo syndrome Elevated troponins Abnormal EKG Plan: Discontinue IV Lasix and start Lasix 40 mg by mouth twice a day Continue with all other current cardiac medications Titrate oxygen down as tolerated
--- NOTE | 2021-02-16 14:52 | P.PN ---
Subjective Progress Note Date: 02/16/21 65-year-old pleasant female came in with compensative shortness of breath cough and congestion is an admission. Patient the results of found to have negative troponins patient had a cardiac catheterization which did not show any significant close cortical occlusive disease, patient probably has a Takatsubo cardiomyopathy is stress in his cardio myopathy with decreased EF of around 30- 35% patient's end-diastolic pressures were elevated because of which patient is on IV Lasix at this time patient is an not in COPD exacerbation I'm discontinuing IV steroids. 02/16/2021 Patient evaluated today resting in bed. She denies any chest pain, cough or shortness of breath. Plan is to continue Lasix overnight due to mildly elevated left ventricular end-diastolic pressure and possible discharge tomorrow. Vital signs afebrile, heart rate 96, blood pressure 112/57, 95% on room air. No acute events overnight. 1.7 L negative fluid balance in the last 24 hours. ROS Constitutional: Denied any fatigue denied any fever. Cardio vascular: denied any chest pain, palpitations Gastrointestinal denied any nausea vomiting Pulmonary: Denied any shortness of breath cough Neurologic denied any new focal deficits All inpatient medications were reviewed and appropriate changes in these medications as dictated in the interval history and assessment and plan. PHYSICAL EXAMINATION: GENERAL: The patient is alert and oriented x3, not in any acute distress. Well developed, well nourished. HEENT: Pupils are round and equally reacting to light. EOMI. No scleral icterus. No conjunctival pallor. Normocephalic, atraumatic. No pharyngeal erythema. No thyromegaly. CARDIOVASCULAR: S1 and S2 present. No murmurs, rubs, or gallops. PULMONARY: Chest is clear to auscultation, no wheezing or crackles. ABDOMEN: Soft, nontender, nondistended, normoactive bowel sounds. No palpable organomegaly. MUSCULOSKELETAL: No joint swelling or deformity. EXTREMITIES: No cyanosis, clubbing, or pedal edema. NEUROLOGICAL: Gross neurological examination did not reveal any focal deficits. SKIN: No rashes. Assessment and plan Assessment -Shortness of breath: Secondary to acute systolic dysfunction from Takatsubo myopathy with decreased EF of around 30-35%. -Elevated troponins: Secondary to stress-induced cardiomyopathy as mentioned above -COPD without any significant acute exacerbation -Hyperthyroidism DVT prophylaxis: Lovenox Plan Transition to oral lasix Wean oxygen as tolerated Repeat BMP tomorrow Discharge tomorrow if cleared by cardiology Objective - Vital Signs Vital signs: Vital Signs Temp 97.7 F 02/16/21 08:04 Pulse 90 02/16/21 08:51 Resp 18 02/16/21 08:04 BP 102/56 02/16/21 08:04 Pulse Ox 91 L 02/16/21 08:04 Intake & Output 02/15/21 02/16/21 02/16/21 18:59 06:59 18:59 Intake Total 971.539 240 Output Total 1025 1300 Balance -53.461 -1300 240 Weight 65.5 kg 65.7 kg Intake: IV 100 Intake, IV Titration 107.539 Amount Heparin Sod,Pork in 0.45% 107.539 NaCl 25,000 unit In 0.45 % NaCl 1 250ml.bag @ 12 UNITS/KG/HR 7.893 mls/hr IV .Q24H [facility] Rx#: [id number] Oral 214 240 Blood Product 550 Output: Urine 1025 1300 Other: Voiding Method Toilet Toilet # Voids 1 - Labs CBC & Chem 7: 02/15/21 03:48 02/15/21 03:48 Labs: Abnormal Lab Results - Last 24 Hours (Table) 02/14/21 02/15/21 02/15/21 Range/Units 11:50 09:13 11:58 APTT (22.0-30.0) sec POC Glucose (mg/dL) 185 H (75-99) mg/dL Troponin I 0.293 H* (0.000-0.034) ng/mL Procalcitonin 0.12 H (0.02-0.09) ng/mL 02/15/21 02/15/21 02/16/21 Range/Units 16:55 20:11 05:54 APTT (22.0-30.0) sec POC Glucose (mg/dL) 128 H 143 H 107 H (75-99) mg/dL Troponin I (0.000-0.034) ng/mL Procalcitonin (0.02-0.09) ng/mL 02/16/21 Range/Units 06:34 APTT 21.7 L (22.0-30.0) sec POC Glucose (mg/dL) (75-99) mg/dL Troponin I (0.000-0.034) ng/mL Procalcitonin (0.02-0.09) ng/mL
--- NOTE | 2021-02-16 15:06 | P.PN ---
Subjective Progress Note Date: 02/16/21 65-year-old female patient was seen yesterday in consultation for an acute COPD exacerbation. Noted the patient also had some chest pain. The patient underwent cardiac catheterization and the cath came back negative and the patient had some cardiomyopathy with an ejection fraction of 35% along with some segmental wall motion abnormalities. Cardiology still on the case. The patient is currently off IV heparin. Meanwhile, in regards to COPD exacerbation, start the patient on examination bronchodilators and steroids and she's feeling much better and less short of breath and less bronchospastic and wheezy. She is still maintaining a saturation above 90% and I was able to wean her off to room air and her current pulse ox on 95%. She is free of any chest pain. No other new complaints otherwise for now. She remains on bronchodilators. She was also started on Symbicort as maintenance. Objective - Vital Signs Vital signs: Vital Signs Temp 97.7 F 02/16/21 08:04 Pulse 96 02/16/21 12:44 Resp 16 02/16/21 12:00 BP 112/57 02/16/21 12:00 Pulse Ox 95 02/16/21 12:00 Intake & Output 02/15/21 02/16/21 02/16/21 18:59 06:59 18:59 Intake Total 971.539 240 Output Total 1025 1300 Balance -53.461 -1300 240 Weight 65.5 kg 65.7 kg Intake: IV 100 Intake, IV Titration 107.539 Amount Heparin Sod,Pork in 0.45% 107.539 NaCl 25,000 unit In 0.45 % NaCl 1 250ml.bag @ 12 UNITS/KG/HR 7.893 mls/hr IV .Q24H [facility] Rx#: [id number] Oral 214 240 Blood Product 550 Output: Urine 1025 1300 Other: Voiding Method Toilet Toilet # Voids 1 - Exam General Impression: Alert and oriented x3, not in acute distress, currently on room air oxygen HEENT: Normocephalic atraumatic, extra-ocular movements intact, pupils equal and reactive to light bilaterally, mucous membranes moist. Cardiovascular: Heart regular rate and rhythm Chest: Able to complete full sentences, no retractions, no tachypnea, mild end expiratory wheezing diffusely Abdomen: abdomen soft, non-tender, non-distended, no organomegaly Musculoskeletal: Pulses present and equal in all extremities, no peripheral edema, the catheterization site in the right radial area is dry clean and intact and there is no evidence of any hematoma. Motor: no focal deficits noted Neurological: CN II-XII grossly intact, no focal motor or sensory deficits noted Skin: Intact with no visualized rashes Psych: Normal affect and moo - Labs CBC & Chem 7: 02/15/21 03:48 02/15/21 03:48 Labs: Abnormal Lab Results - Last 24 Hours (Table) 02/15/21 02/15/21 02/16/21 Range/Units 16:55 20:11 05:54 APTT (22.0-30.0) sec POC Glucose (mg/dL) 128 H 143 H 107 H (75-99) mg/dL 02/16/21 Range/Units 06:34 APTT 21.7 L (22.0-30.0) sec POC Glucose (mg/dL) (75-99) mg/dL Assessment and Plan Plan: 1 acute COPD exacerbation with secondary shortness of breath, computed tomography scan of the chest shows no evidence of any pulmonary embolism or pneumonia. Patient is negative for COVID 19 infection by PCR. The patient is clinically improving and the patient is less short of breath and bronchospastic and wheezy on today's evaluation. In addition, the acute hypoxic respiratory failure has recovered and the patient has been weaned down to room air oxygen. 2 acute non-STEMI, coronaries are normal, consider underlying takasubo syndrome 3 cardiomyopathy with ejection fraction of 35-40% along with segmental wall motion abnormalities 4 acute hypoxic respiratory failure currently on 2 L about 2 by nasal cannula, recovered and the patient is currently on room air oxygen 5 history of smoking Plan Discontinue nasal cannula and put the patient on room air oxygen Discontinue IV Lasix and put the patient oral Lasix IV fluids to KVO Continue Symbicort Discontinue the IV Solu Medrol and put the patient on oral prednisone as part of a burst taper Continue aspirin and beta blockers in the form of metoprolol 25 mg daily Smoking cessation counseling was done Outpatient PFT We'll continue to follow. Possible home either today or within next 24 hours.
[2021-02-16] MEDS: FUROSEMIDE 40 MG TAB PO SCH (17:25)
[2021-02-16] MEDS: predniSONE 20 MG TAB PO SCH (17:25)
[2021-02-17] MEDS: SODIUM CHLORIDE 0.9% 1,000 ML IV SCH (05:03)
[2021-02-17] MEDS: PANTOPRAZOLE 40 MG TABLET PO SCH (06:30)
[2021-02-17] MEDS: SODIUM CHLORIDE 0.9% 1,000 ML in EMPTY BAG 1 BAG IV SCH (06:30)
[2021-02-17] MEDS: LEVOTHYROXINE 125 MCG TAB PO SCH (06:31)
[2021-02-17] MEDS: predniSONE 20 MG TAB PO SCH (07:59)
[2021-02-17] MEDS: CHOLECALCIFEROL 25 MCG (1000 IU) TABLET PO SCH (07:59)
[2021-02-17] MEDS: ASPIRIN 81 MG PO SCH (07:59)
[2021-02-17] MEDS: METOPROLOL SUCCINATE (ER) 25 MG TAB.ER.24H PO SCH (08:06)
[2021-02-17] MEDS: FUROSEMIDE 40 MG TAB PO SCH (08:06)
[2021-02-17] MEDS: SYMBICORT 160-4.5 MCG INHALER INHALATION SCH (08:57)
[2021-02-17] MEDS: IPRATROPIUM-ALBUTEROL 3 ML NEB INHALATION SCH ×2 (08:57→12:25)
--- NOTE | 2021-02-17 11:14 | P.PN ---
Subjective Progress Note Date: 02/17/21 65-year-old female patient was seen yesterday in consultation for an acute COPD exacerbation. Noted the patient also had some chest pain. The patient underwent cardiac catheterization and the cath came back negative and the patient had some cardiomyopathy with an ejection fraction of 35% along with some segmental wall motion abnormalities. Cardiology still on the case. The patient is currently off IV heparin. Meanwhile, in regards to COPD exacerbation, start the patient on examination bronchodilators and steroids and she's feeling much better and less short of breath and less bronchospastic and wheezy. She is still maintaining a saturation above 90% and I was able to wean her off to room air and her current pulse ox on 95%. She is free of any chest pain. No other new complaints otherwise for now. She remains on bronchodilators. She was also started on Symbicort as maintenance. On 02/17/2021 patient is seen in follow-up on selective care unit, she is currently on room air, breathing comfortably, still has a mild congestive cough, she started to bring up some yellow colored phlegm. No complaints of chest pain, no hemoptysis, vital signs otherwise patient had slight hypotension, she is asymptomatic, her morning dose of Lasix has been held, cardiology is closely following, this morning his blood pressure is 83/59, however patient denies any lightheadedness no dizziness, she is ambulating about the room, she is breathing comfortably, she states she is feeling good, she would like to go home today. She has been transitioned to oral prednisone yesterday, she remains on nebulized bronchodilators and Symbicort. She has had no fever or chills. Objective - Vital Signs Vital signs: Vital Signs Temp 97.6 F 02/17/21 08:00 Pulse 88 02/17/21 09:12 Resp 16 02/17/21 08:00 BP 94/60 02/17/21 08:00 Pulse Ox 91 L 02/17/21 08:00 Intake & Output 02/16/21 02/17/21 02/17/21 18:59 06:59 18:59 Intake Total 240 Output Total 1850 Balance 240 -1850 Weight 65.6 kg Intake: Oral 240 Output: Urine 1850 Other: Voiding Method Toilet # Voids 2 - Exam GENERAL EXAM: Alert, very pleasant, 65-year-old white female, on room air, ambulating in the room, comfortable in no apparent distress. Patient has a mildly congestive cough HEAD: Normocephalic/atraumatic. EYES: Normal reaction of pupils, equal size. Conjunctiva pink, sclera white. NOSE: Clear with pink turbinates. THROAT: No erythema or exudates. NECK: No masses, no JVD, no thyroid enlargement, no adenopathy. CHEST: No chest wall deformity. Symmetrical expansion. LUNGS: Equal air entry with no crackles, wheeze, rhonchi or dullness. CVS: Regular rate and rhythm, normal S1 and S2, no gallops, no murmurs, no rubs ABDOMEN: Soft, nontender. No hepatosplenomegaly, normal bowel sounds, no guarding or rigidity. EXTREMITIES: No clubbing, no edema, no cyanosis, 2+ pulses and upper and lower extremities. MUSCULOSKELETAL: Muscle strength and tone normal. SPINE: No scoliosis or deformity SKIN: No rashes CENTRAL NERVOUS SYSTEM: Alert and oriented -3. No focal deficits, tone is normal in all 4 extremities. PSYCHIATRIC: Alert and oriented -3. Appropriate affect. Intact judgment and insight. - Labs CBC & Chem 7: 02/15/21 03:48 02/15/21 03:48 Assessment and Plan Plan: Assessment: #1. Acute exacerbation of COPD, with secondary shortness of breath, CT angiogram of the chest showed no evidence of pulmonary embolism or pneumonia, COVID-19 PCR was negative, patient was treated with IV steroids, and bronchodilators, she is clinically improving #2. Acute non-ST elevated myocardial infarction, patient had coronary angiography, and coronaries are normal, with the possibility of underlying topical solution syndrome #3. Cardiomyopathy, with ejection fraction of 35-40% along with segmental wall motion abnormalities #4. Acute hypoxic respiratory failure related to acute exacerbation of COPD, recovered and patient is currently on room air #5. Chronic and ongoing history of smoking Plan: Patient is improving from pulmonary perspective She has been transitioned to oral prednisone Vital signs are stable, she is on room air Tolerating ambulation, no complaint of chest pain She is having mild hypotension this morning, and her morning dose of Lasix has been held She is asymptomatic otherwise She is stable for discharge from pulmonary perspective if she has been cleared by cardiology Patient will need to complete prednisone taper starting at 40 mg, she'll be sent home on DuoNeb nebulized treatments 4 times daily, and Symbicort inhaler 2 puffs twice daily Outpatient follow-up with Dr. Delgado in the office in 2-3 weeks I performed a history & physical examination of the patient and discussed their management with my nurse practitioner, Destiney Roblero. I reviewed the nurse practitioner's note and agree with the documented findings and plan of care. Lung sounds are positive for dim breath sounds throughout the lung marcial. The findings and the impression was discussed with the patient. I attest to the documentation by the nurse practitioner. Time with Patient: Less than 30
[2021-02-17 11:35] VITALS: TEMP 97.8
--- NOTE | 2021-02-17 11:37 | P.PN ---
Subjective Progress Note Date: 02/17/21 This 65-year-old female with no significant past medical history admitted with new onset heart failure. Patient's EKG revealed severe inferior lateral T-wave inversions and positive troponins, underwent a left heart catheterization yesterday. She was found to have normal coronary arteries negative for significant blockages. She will continue to be medically managed. It is believed the patient's EKG changes and elevated troponins are probably related to Takotsubo syndrome. After talking to the patient she reports she has had significant stress recently. She denies chest pain, palpitations, dyspnea, dizziness, syncope, or edema. Patient is on room air today, according to her nurse with activity she remains at 90%. Patient was hypotensive this morning her lasix was held and she received her m etoprolol. Will decrease Lasix due to hypotension. Patient has a current smoker. Discussed smoking cessation and advised her to quit. Blood pressure is 94/60, afebrile, heart rate 88, 91% on room air. Will continue patient on aspirin, beta blockers, Lasix. Objective - Vital Signs Vital signs: Vital Signs Temp 97.6 F 02/17/21 08:00 Pulse 88 02/17/21 09:12 Resp 16 02/17/21 08:00 BP 94/60 02/17/21 08:00 Pulse Ox 91 L 02/17/21 08:00 Intake & Output 02/16/21 02/17/21 02/17/21 18:59 06:59 18:59 Intake Total 240 Output Total 1850 Balance 240 -1850 Weight 65.6 kg Intake: Oral 240 Output: Urine 1850 Other: Voiding Method Toilet # Voids 2 - Exam PHYSICAL EXAM: VITAL SIGNS: Reviewed. GENERAL: Well-developed in no acute distress. HEENT: Head is normocephalic. Pupils are equal, round. Sclerae anicteric. Mucous membranes of the mouth are moist. NECK: Supple. No JVD or thyromegaly RESPIRATORY: Respirations even and unlabored. Lungs diminished with faint expiratory wheezes to auscultation bilaterally. Patient on 2 L nasal cannula CARDIO: Regular rate and rhythm. S1 and S2 heard. No murmur or gallops. EXTREMITIES: Normal range of motion. No clubbing or cyanosis. Peripheral pulses intact. Negative for bilateral lower extremity edema NEURO: Orientated to person, time, mood is appropriate - Labs CBC & Chem 7: 02/15/21 03:48 02/15/21 03:48 Assessment and Plan Assessment: New onset systolic congestive heart failure Takotsubo syndrome Elevated troponins Abnormal EKG Plan: Decrease Lasix to 40 mg daily Continue beta lazarus Due to normal coronary artery findings, patient does not require statin Continue all other current cardiac medications Continue on room air Increase activity as tolerated possible discharge within 24 hours
[2021-02-17 15:05] VITALS: BP 97/65; PULSE 75; RESP 17
--- NOTE | 2021-02-17 15:12 | P.DS ---
Providers Date of admission: 02/14/21 15:11 Attending physician: Ramos Sarmiento Consults: 02/14/21 14:09 Consult Physician Routine Consulting Provider: Blanca Small Consult Reason/Comments: heart failure, elevated troponin Do you want consulting provider notified?: Already Contacted 02/14/21 19:06 Consult Physician Routine Consulting Provider: Hamlet Murphy Consult Reason/Comments: copd?? Do you want consulting provider notified?: Yes Primary care physician: Ric Veras Hospital Course: Final Diagnosis -Acute systolic dysfunction from Takatsubo myopathy with decreased EF of around 30-35%. -Elevated troponins: Secondary to stress-induced cardiomyopathy as mentioned above -COPD with acute exacerbation -Hyperthyroidism -Mildly elevated end diastolic pressure found on cardiac catheterization -Hypotension, asymptomatic Discharge Disposition Patient is discharged home to follow up with PCP, cardiology, and pulmonary. Repeat BMP outpatient. Hospital Course This is a 64-year-old female who presented to the hospital with shortness of breath over several days, she does admit to smoking one pack of cigarettes per day. She has not had a cigarette in the last 2-3 days prior to admission. Chest x-ray on admission showed no acute cardiopulmonary disease process. Chest CTA revealed no evidence of pulmonary embolism. Echocardiogram revealed an EF of 35-40% with moderately impaired systolic function with hypokinesis of the LV wall. Subsequently patient was taken for cardiac catheterization which revealed normal coronary arteries and mildly elevated end-diastolic pressure. Labs on admission showed a BNP of 6680, pro-calcitonin 0.12, although troponins 0.760 and 0.293. Sodium level 136, BUN 11, creatinine 0.49, sugars in the 140s. Urinalysis negative for infection, Covid PCR not detected. Hematology panel unremarkable. Patient has remained afebrile, blood pressure 90s over 60s, patient states that it is normal for her to have a lower blood pressure. Blood pressure dipped as low as 83/59 however she has remained asymptomatic and denies any lightheadedness or dizziness. She has been 91-93% on room air. Heart rate 80s sinus rhythm. She was followed by cardiology and pulmonary services this admission. Pulmonary treated patient for an acute COPD exacerbation with steroids as well as Symbicort and nebulized DuoNeb. She will continue a steroid taper on discharge and follow-up with Dr. Delgado in the office. 02/17/2021 Patient evaluated today sitting up in her room. She is on room air. She denies any chest pain, cough, shortness of breath. She denies any dizziness lightheadedness. She denies any nausea vomiting or diarrhea. Abdomen is soft nontender, lungs are clear to auscultation, S1-S2 auscultated. There is no peripheral edema. Focal neurological exam is negative. Blood pressure this morning with the lower side 83/59 however am dose of Lasix was hel, her blood pressure is now 96 over 60s. Patient is cleared for discharge by pulmonary and cardiology services. Recommendations from cardiology include discharge on lasix 40 mg po daily, toprol xl 25 mg po daily. Please see medication reconciliation for list of current medications. Thank you for allowing us to participate in the care of this patient. Patient Condition at Discharge: Stable Plan - Discharge Summary Discharge Rx Participant: No New Discharge Prescriptions: New Ipratropium-Albuterol Nebulize [Duoneb 0.5 mg-3 mg/3 ml Soln] 3 ml INHALATION QID 30 Days #6 pack Metoprolol Succinate (ER) [Toprol XL] 25 mg PO DAILY #30 tab Furosemide [Lasix] 40 mg PO DAILY 30 Days #30 tab predniSONE 0 mg PO DIRECTED 16 Days #40 tab Budesonide/Formoterol Fumarate [Symbicort 160-4.5 Mcg Inhaler] 1 puff INHALATION BID 30 Days #10.2 gm Aspirin 81 mg PO DAILY #30 tab Famotidine [Pepcid] 20 mg PO DAILY #30 tablet Continue Levothyroxine Sodium [Synthroid] 62.5 mcg PO CAPUTO Levothyroxine Sodium [Synthroid] 125 mcg PO MOTUWETHFRSA Cholecalciferol [Vitamin D3 (25 Mcg = 1000 Iu)] 50 mcg PO Q48H Discharge Medication List Cholecalciferol [Vitamin D3 (25 Mcg = 1000 Iu)] 50 mcg PO Q48H 02/14/21 [History] Levothyroxine Sodium [Synthroid] 62.5 mcg PO CAPUTO 02/14/21 [History] Levothyroxine Sodium [Synthroid] 125 mcg PO MOTUWETHFRSA 02/14/21 [History] Aspirin 81 mg PO DAILY #30 tab 02/17/21 [Rx] Budesonide/Formoterol Fumarate [Symbicort 160-4.5 Mcg Inhaler] 1 puff INHALATION BID 30 Days #10.2 gm 02/17/21 [Rx] Famotidine [Pepcid] 20 mg PO DAILY #30 tablet 02/17/21 [Rx] Furosemide [Lasix] 40 mg PO DAILY 30 Days #30 tab 02/17/21 [Rx] Ipratropium-Albuterol Nebulize [Duoneb 0.5 mg-3 mg/3 ml Soln] 3 ml INHALATION QID 30 Days #6 pack 02/17/21 [Rx] Metoprolol Succinate (ER) [Toprol XL] 25 mg PO DAILY #30 tab 02/17/21 [Rx] predniSONE 0 mg PO DIRECTED 16 Days #40 tab 02/17/21 [Rx] Follow up Appointment(s)/Referral(s): Ric Veras DO [Primary Care Provider] - 02/22/21 2:00 pm Jhonny Mendoza MD [STAFF PHYSICIAN] - 2 Weeks (office will call you to schedule. ) Edelmira Delgado MD [STAFF PHYSICIAN] - 03/10/21 2:30 pm (with Shannan Rodríguez NP) Ambulatory/Diagnostic Orders: Basic Metabolic Panel [LAB.AMB] Time Frame: 2 Days, Location: None Selected Patient Instructions/Handouts: Heart Failure (DC) Activity/Diet/Wound Care/Special Instructions: Patient needs nebulizer to manage COPD at discharge Discharge Disposition: HOME WITH HOME HEALTH SERVICES
[2021-02-18] MEDS ORDERED: FUROSEMIDE 40 MG TAB PO SCH (09:00)
[2021-02-21] MEDS ORDERED: LEVOTHYROXINE 125 MCG TAB PO SCH (06:30)
== END 2021-02-17 15:12 | disposition home health service (06) | DRG 189 ==
LOC: EC 10:50 → 3SCARD 15:11
PROVIDERS: ADMIT Hospitalist; ATTEND Hospitalist
PROC: B2111ZZ Fluoroscopy of Multiple Coronary Arteries using Low Osmolar Contrast (ICD-10-PCS; 2021-02-15)
PROC: 4A023N7 Measurement of Cardiac Sampling and Pressure, Left Heart, Percutaneous Approach (ICD-10-PCS; principal; 2021-02-15 14:30)
DX: J96.01 Acute respiratory failure with hypoxia (principal); I50.23 Acute on chronic systolic (congestive) heart failure; I51.81 Takotsubo syndrome; E87.1 Hypo-osmolality and hyponatremia; J44.1 Chronic obstructive pulmonary disease with (acute) exacerbation; J20.9 Acute bronchitis, unspecified; I34.0 Nonrheumatic mitral (valve) insufficiency; I25.5 Ischemic cardiomyopathy; Z20.822 Contact with and (suspected) exposure to COVID-19; E03.9 Hypothyroidism, unspecified; E05.90 Thyrotoxicosis, unspecified without thyrotoxic crisis or storm; F17.210 Nicotine dependence, cigarettes, uncomplicated; Z79.890 Hormone replacement therapy; Z79.899 Other long term (current) drug therapy; Z90.710 Acquired absence of both cervix and uterus; Z71.6 Tobacco abuse counseling
CPT/HCPCS: 36415; 71045; 71275; 80048; 81001; 82728; 83615; 83880; 84145; 84484; 85025; 85379; 85610; 85730; 87635; 93005; 93308; 93458; 94640; 96365; 96366; 96375; 99291

== ENCOUNTER → 2021-02-19 | Outpatient (CLI) | payer OTHER ==
[2021-02-19 14:56] LABS: African American GFR (CKD) 97.7 (60.0-200.0); Anion Gap 13.9 mmol/L (10.00-18.00); BUN/Creat Ratio 20.03 Ratio (12.00-20.00); Blood Urea Nitrogen 15.1 mg/dL (9.0-27.0); Calcium 9.6 mg/dL (8.7-10.3); Carbon Dioxide 24.6 mmol/L (20.0-27.5); Non-African American GFR(CKD) 84.3 (60.0-200.0)
== END | disposition home or self-care (01) ==
LOC: LABWHC1 09:05
PROVIDERS: ATTEND Nurse Practitioner Family
DX: E87.1 Hypo-osmolality and hyponatremia (principal)
CPT/HCPCS: 36415; 80048

== ENCOUNTER → 2022-03-08 | Outpatient (CLI) | payer OTHER ==
--- NOTE | 2022-03-08 19:08 | MM ---
Reason for Exam: Screening (asymptomatic). Last mammogram was performed 1 year(s) and 7 month(s) ago. Patient History: Menarche at age 13. First Full-Term at age 23. Left ovary removed at age 44. Right ovary removed at age 44. Hysterectomy at age 44. Postmenopausal. Mother had breast cancer. Risk Values: Claudia 5 year model risk: 3.4%. NCI Lifetime model risk: 13.2%. Prior Study Comparison: 03/25/2015 Bilateral Screening Mammogram, [facility]. 05/12/2017 Bilateral Screening Mammogram, [facility]. 07/29/2020 Bilateral Screening Mammogram, [facility]. Tissue Density: The breast tissue is heterogeneously dense. This may lower the sensitivity of mammography. Findings: Analyzed By CAD. Possible distortion versus superimposition shadow posterior central left cc view. No clear correlate on the MLO view. Further evaluation is recommended. Chronic nodularity upper outer quadrant right breast and a couple foci of coarse or round calcification on the right. Overall Assessment: Incomplete: need additional imaging evaluation, BI-RAD 0 Management: Special View Mammogram of the left breast. Including spot 3-D CC, 3-D CC rolled medial, spot 3-D MLO, and 3-D lateral views. Targeted left breast ultrasound if any persisting abnormality. [facility] will attempt to contact patient to return for supplemental views and ultrasound if indicated. Electronically signed and approved by: Luisa Saleh M.D. Radiologist
== END | disposition home or self-care (01) ==
LOC: RADMAMWWP 06:49
PROVIDERS: ATTEND Family Medicine
DX: Z12.31 Encounter for screening mammogram for malignant neoplasm of breast (principal); Z78.0 Asymptomatic menopausal state; Z80.3 Family history of malignant neoplasm of breast
CPT/HCPCS: 77067

== ENCOUNTER → 2022-03-10 | Outpatient (CLI) | payer OTHER ==
--- NOTE | 2022-03-10 09:06 | MM ---
Reason for Exam: Additional evaluation requested from abnormal screening. Last screening mammogram was performed less than 1 month ago. Patient History: Menarche at age 13. First Full-Term at age 23. Left ovary removed at age 44. Right ovary removed at age 44. Hysterectomy at age 44. Postmenopausal. Mother had breast cancer. Risk Values: Claudia 5 year model risk: 3.4%. NCI Lifetime model risk: 13.2%. Prior Study Comparison: 03/25/2015 Bilateral Screening Mammogram, [facility]. 05/12/2017 Bilateral Screening Mammogram, [facility]. 07/29/2020 Bilateral Screening Mammogram, [facility]. 03/08/2022 Bilateral MG screening mammo w CAD, [facility]. Tissue Density: Left: The breast tissue is heterogeneously dense. This may lower the sensitivity of mammography. Findings: Analyzed By CAD. Area of possible architectural distortion becomes less apparent on the spot CC view. No clear persisting abnormality on the spot MLO are lateral view. As very dense tissue superiorly, further ultrasound evaluation is recommended. Overall Assessment: Incomplete: need additional imaging evaluation, BI-RAD 0 Management: Diagnostic Breast Ultrasound of the left breast. Electronically signed and approved by: Luisa Saleh M.D. Radiologist
--- NOTE | 2022-03-10 09:33 | USB ---
Reason for Exam: Additional evaluation requested from abnormal screening. Patient History: Menarche at age 13. First Full-Term at age 23. Left ovary removed at age 44. Right ovary removed at age 44. Hysterectomy at age 44. Postmenopausal. Mother had breast cancer. Risk Values: Claudia 5 year model risk: 3.4%. NCI Lifetime model risk: 13.2%. Technique: Method: Targeted. Prior Study Comparison: 05/12/2017 Bilateral Screening Mammogram, [facility]. 07/29/2020 Bilateral Screening Mammogram, [facility]. 03/08/2022 Bilateral MG screening mammo w CAD, [facility]. Findings: The upper section of the breast of the left breast, the axilla of the left breast and the retroareolar of the left breast were scanned. Targeted ultrasound left breast 10:00 to 2:00 position including the subareolar region and axilla. There is dense tissue present throughout. No solid or cystic lesion. Overall Assessment: Probably benign, BI-RAD 3 Management: Diagnostic Mammogram of the left breast. 1. Patient should continue monthly self breast exams. 2. A clinical breast exam by your physician is recommended on an annual basis. 3. This exam should not preclude additional follow-up of suspicious palpable abnormalities. Results were given to the patient verbally at the time of exam. Electronically signed and approved by: Luisa Saleh M.D. Radiologist
== END | disposition home or self-care (01) ==
LOC: RADMAMWWP 08:12
PROVIDERS: ATTEND Family Medicine
DX: R92.8 Other abnormal and inconclusive findings on diagnostic imaging of breast (principal); Z78.0 Asymptomatic menopausal state; Z80.3 Family history of malignant neoplasm of breast; Z90.721 Acquired absence of ovaries, unilateral
CPT/HCPCS: 77065

== ENCOUNTER → 2022-09-12 | Outpatient (CLI) | payer MEDICARE, OTHER ==
--- NOTE | 2022-09-12 08:12 | MM ---
Reason for Exam: Follow-up at short interval from prior study. Last screening mammogram was performed 6 month(s) ago. Patient History: Menarche at age 13. First Full-Term at age 23. Left ovary removed at age 44. Right ovary removed at age 44. Hysterectomy at age 44. Postmenopausal. Mother had breast cancer. Risk Values: Claudia 5 year model risk: 3.5%. NCI Lifetime model risk: 12.7%. Prior Study Comparison: 07/29/2020 Bilateral Screening Mammogram, [facility]. 03/08/2022 Bilateral MG screening mammo w CAD, [facility]. 03/10/2022 Left MG work up mamm w CAD LT, [facility]. Tissue Density: Left: The breast tissue is heterogeneously dense. This may lower the sensitivity of mammography. Findings: Analyzed By CAD. No new suspicious masses, calcifications or distortions. Overall Assessment: Benign, BI-RAD 2 Management: Screening Mammogram of both breasts in 6 months. Results were given to the patient verbally at the time of exam. Patient should continue monthly self-breast exams. A clinical breast exam by your physician is recommended on an annual basis. This exam should not preclude additional follow-up of suspicious palpable abnormalities. Note on Claudia scores and lifetime risk: 1. A Claudia score greater than 3% is considered moderate risk. If this is the case, consider specialist referral to assess eligibility for a risk reducing agent. 2. If overall lifetime risk for the development of breast cancer is 20% or higher, the patient may qualify for future screening with alternating mammogram and breast MRI. Electronically signed and approved by: Hamlet Pickard DO
== END | disposition home or self-care (01) ==
LOC: RADMAMWWP 06:50
PROVIDERS: ATTEND Family Medicine
DX: R92.2 Inconclusive mammogram (principal); Z78.0 Asymptomatic menopausal state; Z80.3 Family history of malignant neoplasm of breast
CPT/HCPCS: 77065; G0279; 77061

== ENCOUNTER → 2023-02-23 | Outpatient (CLI) | payer MEDICARE, OTHER ==
--- NOTE | 2023-02-23 11:02 | CTL ---
EXAMINATION TYPE: CT Low Dose Lung DATE OF EXAM: 02/23/2023 8:32 AM CLINICAL INDICATION:Female, 67 years old with history of Z12.2 Lung cancer screening; Personal hx tob acco use, still smoking, 1 pk per day x 40 years, noting no concerns , history of tobacco use. COMPARISON: 02/14/2021. TECHNIQUE: Multiple axial non-contrast scans were obtained from approximately the lung apices through the upper abdomen. Coronal and sagittal reformatted images were obtained. Low dose technique was uti lized. CT DLP: 85.90 mGycm, Automated exposure control for dose reduction was used. CT Contrast: Contrast used: None Oral contrast used: None FINDINGS: ======== Lack of intravenous contrast and low dose technique limits the evaluation of the vascular and soft ti ssue structures. LUNGS: No evidence of pulmonary fibrosis. No evidence of focal consolidation, pneumothorax or pleural effusion. Mild centrilobular and paraseptal emphysema changes. Nodules: RUL: Calcified granuloma series 3 image 50, Image 140 RML: None. RLL: Streaky atelectasis/scarring in the right lung base. Suspected granuloma series 3 image 224. [place]: Calcified granuloma series 3 image 104. Scarring in the left lung apex and lingula. LLL: None. AIRWAY: Patent and unremarkable. HEART: Size within normal limits. MEDIASTINUM: No gross evidence of adenopathy. VASCULATURE: No aortic aneurysm. MUSCULOSKELETAL: No acute osseous abnormalities SOFT TISSUES/LYMPH NODES: Unremarkable. LOWER NECK: No significant findings. UPPER ABDOMEN: Scattered hepatic probable cyst. IMPRESSION: 1. No clinically significant pulmonary nodules. 2. Mild emphysema. CT LUNG RAD AND CT CHEST RECOMMENDATION: Lung-Rad 2 Benign Appearance or Behavior: Continue annual sc reening with LDCT in 12 months. S Modifier (other clinically significant findings): None Recommend smoking cessation (if current smoker), or continuation of smoking cessation (if prior smoke r). Annual screening for lung cancer with low-dose computed tomography is recommended in adults ages 55 to 77 years who have a 30 pack-year smoking history and currently smoke or have quit within the pa st 15 years. Screening should be discontinued once a person has not smoked for 15 years or develops a health problem that substantially limits life expectancy or the ability or willingness to have curat regi lung surgery. Lung rads 2021 [email or web address]
== END | disposition home or self-care (01) ==
LOC: RADCTMAIN 08:12
PROVIDERS: ATTEND Internal Medicine
DX: Z12.2 Encounter for screening for malignant neoplasm of respiratory organs (principal); J43.2 Centrilobular emphysema; F17.210 Nicotine dependence, cigarettes, uncomplicated
CPT/HCPCS: 71271

== ENCOUNTER → 2023-05-10 | Outpatient (CLI) | payer MEDICARE, OTHER ==
--- NOTE | 2023-05-10 18:40 | MM ---
Reason for Exam: Screening (asymptomatic). Last mammogram was performed 1 year(s) and 2 month(s) ago. Patient History: Menarche at age 13. First Full-Term at age 23. Left ovary removed at age 44. Right ovary removed at age 44. Hysterectomy at age 44. Postmenopausal. Mother had breast cancer. Risk Values: Claudia 5 year model risk: 3.5%. NCI Lifetime model risk: 12.7%. Prior Study Comparison: 03/08/2022 Bilateral MG screening mammo w CAD, [facility]. 03/10/2022 Left MG work up mamm w CAD LT, [facility]. 09/12/2022 Left MG 3D diag mammo w/cad LT, [facility]. Tissue Density: The breasts are heterogeneously dense, which may obscure small masses. Findings: Analyzed By CAD. Unchanged bilateral areas of asymmetric density. There is no suspicious group of microcalcifications or new suspicious mass in either breast. Overall Assessment: Benign, BI-RAD 2 Management: Screening Mammogram of both breasts in 1 year. See note below in regards to patient's increased 5 year Claudia score. Patient should continue monthly self-breast exams. A clinical breast exam by your physician is recommended on an annual basis. This exam should not preclude additional follow-up of suspicious palpable abnormalities. Note on Claudia scores and lifetime risk: 1. A Claudia score greater than 3% is considered moderate risk. If this is the case, consider specialist referral to assess eligibility for a risk reducing agent. 2. If overall lifetime risk for the development of breast cancer is 20% or higher, the patient may qualify for future screening with alternating mammogram and breast MRI. Electronically signed and approved by: Luisa Saleh M.D. Radiologist
== END | disposition home or self-care (01) ==
LOC: RADMAMWWP 08:17
PROVIDERS: ATTEND Family Medicine
DX: Z12.31 Encounter for screening mammogram for malignant neoplasm of breast (principal); Z78.0 Asymptomatic menopausal state; Z80.3 Family history of malignant neoplasm of breast
CPT/HCPCS: 77063; 77067

== ENCOUNTER → 2024-05-15 | Outpatient (CLI) | payer MEDICARE, OTHER ==
--- NOTE | 2024-05-15 14:52 | CTL ---
EXAMINATION TYPE: CT Low Dose Lung DATE OF EXAM ORDERED: 05/15/2024 COMPARISON: CT Low Dose Lung 02/23/2023, CTA chest 02/14/2021 CLINICAL INDICATION: Female, 68 years old with history of Z12.2 SCREENING LUNG CA F17.210 CURRENT SMO KER; PHH, personal tobacco use, Lung cancer screening, History of Smoking/tobacco use. TECHNIQUE: Low dose computed tomography scan was performed through the chest at 1 mm thick sections a nd reconstructed images in multiple planes at 1 mm and [address] DLP: 67.[address] CTDI: 1.9 mGy Automated exposure control for dose reduction was used. CT DIAGNOSTIC QUALITY: Satisfactory FINDINGS: Nodules: Stable right upper lobe calcified granuloma. Stable medial right upper lobe calcified granuloma. Stable peripheral right lower lobe 2 mm pulmonary nodule (series 6, image 44). Stable anterior left upper lobe 1.7 mm pulmonary nodule (series 6, image 24). No new or enlarging pulmonary nodules. LUNGS: COPD: Severity: Mild centrilobular emphysematous changes. Fibrosis: Severity: None Lymph nodes: None Other findings: None RIGHT PLEURAL SPACE: Effusion: None Calcification: None Thickening: None Pneumothorax: None LEFT PLEURAL SPACE: Effusion: None Calcification: None Thickening: None Pneumothorax: None HEART: Heart Size: Normal Coronary Calcification: None Pericardial Effusion: None OTHER FINDINGS: Upper abdomen: Stable scattered hepatic cysts. Bony thorax: None Supraclavicular region: None Other: Mild atherosclerotic calcification of the aorta and its branches. IMPRESSION: 1. Few stable pulmonary micronodules and calcified granulomas with no new clinically significant pulm onary nodules from prior exam. 2. Mild emphysematous changes. CT LUNG RAD AND CT CHEST RECOMMENDATION: Lung-Rad 2 Benign Appearance or Behavior: Continue annual sc reening with LDCT in 12 months. S Modifier (other clinically significant findings): None [facility], , 05/15/2024 2:50 PM
== END | disposition home or self-care (01) ==
LOC: RADCTMAIN 14:02
PROVIDERS: ATTEND Internal Medicine
DX: Z12.2 Encounter for screening for malignant neoplasm of respiratory organs (principal); F17.210 Nicotine dependence, cigarettes, uncomplicated; J84.10 Pulmonary fibrosis, unspecified; J43.9 Emphysema, unspecified; R91.8 Other nonspecific abnormal finding of lung field
CPT/HCPCS: 71271